=== PATIENT | female | born 1980 | race Caucasian/White ===

== ENCOUNTER 2023-06-08 04:36 | Emergency (ER) | payer MEDICAID, SELFPAY ==
[2023-06-08 04:41] VITALS: BP 143/96; PULSE 86; TEMP 36.6; O2SAT 98; BMI 25.8
--- NOTE | 2023-06-08 04:50 | ED_ITS ---
HPI HPI - Extremity Injury (Upper) General Chief Complaint: Extremity Injury, Upper Stated Complaint: R ARM PAIN Time Seen by Provider: 06/08/23 04:49 Source: patient Mode of arrival: walk-in Limitations: no limitations History of Present Illness HPI narrative: 42-year-old female who is right-hand dominant presents for evaluation of right forearm pain. The patient works at [employer] and states that approximately one month ago she was in the cooler and some pallets of pop started to fall. She put her right arm up to brace the pallets from falling and thinks that she sustained a contusion to the right forearm. She has been working despite being injured and has been using her right arm a lot. When she does certain things with her right arm she has increasing pain. Specifically she has increasing pain with supination of the extremity or repetitive movement such as placing pop bottles in the sliders in the cooler. She has no numbness or tingling. She has been using ibuprofen without significant improvement.No additional injuries or complaints. Related Data Home Medications ?Medication ?Instructions ?Recorded ?Confirmed No Known Home Medications 06/08/23 06/08/23 Allergies Allergy/AdvReac Type Severity Reaction Status Date / Time Penicillins Allergy Intermediate Hives Verified 06/08/23 04:44 Opioid HPI Opioid Management Most Recent Pain and Opioid Data: No Data to Display Review of Systems ROS Status of ROS 10 or more systems reviewed and unremark able except as noted in history and below Exam Narrative Exam Narrative: Nurses note and vital signs reviewed and patient is not hypoxic.Blood pressure is mildly elevated at 143/96 General: The patient appears well and in no apparent distress. Patient is resting comfortably on cart. Skin: Warm, dry, no pallor noted. There is no rash noted. Head: Normocephalic, atraumatic Eye: Normal conjunctiva, no drainage, EOMI. PERRL Ears, Nose, Mouth, and Throat: oral mucosa is moist. partially edentulous Cardiovascular: Regular Rate and Rhythm S1S2, pulses are brisk and equal bilaterally Respiratory: Patient is in no distress, no accessory muscle use, lungs are clear to auscultation, no wheezing, rales or rhonchi Back: non-tender, no CVA tenderness bilaterally to percussion.d. Musculoskeletal: Mild tenderness to the right anterior forearm. Tenderness is increased with supination of the forearm. There is no bony elbow tenderness. There is no swelling, bruising or other notable abnormality. Patient is able to approximate thumb and all fingers. Radial and brachial pulses are brisk and equal bilaterally. Capillary refill in the extremity is less than 2 seconds. There is no tenderness or swelling in the upper arm. There is no shoulder or wrist tenderness. Neurological: A&O x4, normal speech Psychiatric: Cooperative Constitutional Vital Signs, click to edit/add: Last Vital Signs Temp 97.8 F 06/08/23 04:41 Pulse 86 06/08/23 04:41 Resp 18 06/08/23 04:41 BP 143/96 H 06/08/23 04:41 Pulse Ox 98 06/08/23 04:41 O2 Del Method Room Air 06/08/23 04:41 Course Vital Signs Vital signs: Vital Signs Temperature 97.8 F 06/08/23 04:41 Pulse Rate 86 06/08/23 04:41 Respiratory Rate 18 06/08/23 04:41 Blood Pressure 143/96 H 06/08/23 04:41 Pulse Oximetry 98 06/08/23 04:41 Oxygen Delivery Method Room Air 06/08/23 04:41 Temperature 97.8 F 06/08/23 04:41 Pulse Rate 86 06/08/23 04:41 Respiratory Rate 18 06/08/23 04:41 Blood Pressure 143/96 H 06/08/23 04:41 Pulse Oximetry 98 06/08/23 04:41 Oxygen Delivery Method Room Air 06/08/23 04:41 MDM - Extremity Injury (Upper) MDM Narrative Medical decision making narrative: This 42-year-old female who is right-hand dominant presents for evaluation of right forearm pain. She had a minor injury proximal he one month ago at work. She was not seen at that time. Since then she has had intermittent and ongoing right forearm pain which is worse with repetitive movement and supination. She is tender over the mid forearm. Medical Intern strength is intact, there is no numbness or tingling. Pulses and capillary refill are normal. She has been using ibuprofen without significant improvement. X-ray of the forearm was reviewed by myself and is normal. She was given 2 norco to take home to help her rest and will be given a medrol dose pack and a short course of norco to use as needed for ongoing pain. She will be referred to outpatient orthopedics for further evaluation and treatment OARRS was reviewed and there is no activity reported Discharge Plan Discharge Stand Alone Forms: Portal Instructions Chief Complaint: Extremity Injury, Upper Clinical Impression: Forearm strain Patient Disposition: Home, Self-Care Time of Disposition Decision: 05:39 Condition: Good Prescriptions / Home Meds: No Action No Known Home Medications Print Language: Barbadian Instructions: Musculoskeletal Pain (ED) Referrals: Physician,Non-Staff, MD [Primary Care Provider] - 1 week Carlos Fofana MD [Physician] - 1 week
--- NOTE | 2023-06-08 04:52 | PC.NURSE ---
Pt reports pain with movement of right elbow and forearm, denies numbness or tingling in upper extremity.
--- NOTE | 2023-06-08 04:56 | XR_ITS ---
The [address] [address] Patient Name: QUINN AYALA MRN: [id number] date: 1980 Sex: F Assigned Patient Location: ED.MAIN Current Patient Location: ED.MAIN Accession/Order Number: [id number] Exam Date: 06/08/2023 05:18 Report Date: 06/08/2023 05:39 At the request of: CRISTINA DAWN Procedure: XR forearm RT 2V EXAM: XR forearm RT 2V HISTORY: Right forearm pain. forearm injury COMPARISON: None available TECHNIQUE: 2 views right forearm x-rays FINDINGS: No acute fracture line, dislocation, or focal osseous erosion. No radiopaque foreign body. XR/XR forearm RT 2V IMPRESSION: No radiographic evidence for acute bony injury. Electronically authenticated by: KAREN RAY Date: 06/08/2023 05:39
[2023-06-08] MEDS: ONDANSETRON 4 MG RAPDIS TABLET SL (06:03)
[2023-06-08] MEDS: HYDROCODONE/ACET 5-325 MG TABLET 2 TAB PO (06:04)
[2023-06-08 06:06] VITALS: PULSE 76; O2SAT 99
== END 2023-06-08 06:06 | disposition home or self-care (01) ==
PROVIDERS: Emergency Provider Emergency Medicine
DX: S56.911A Strain of unspecified muscles, fascia and tendons at forearm level, right arm, initial encounter (principal); X50.9XXA Other and unspecified overexertion or strenuous movements or postures, initial encounter
CPT/HCPCS: 73090; 99283

== ENCOUNTER 2024-02-04 18:38 | Emergency (ER) | payer MEDICAID, SELFPAY ==
[2024-02-04 18:47] VITALS: BP 120/78; PULSE 81; TEMP 36.5; O2SAT 99; BMI 26.6
--- OUTSIDE RECORDS SUMMARY | 2024-02-04 18:50 | XMS_ITS | CCD ---
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 Name Role Phone John Arce Unavailable SAMY SAPP Attending Unavailable Unavailable Primary Care Provider Unavailabl e Allergies Allergy Classification Reported Allergen(s) Allergy Type Date of Onset Reaction(s) Facility (1 source) Penicillin Drug Allergy Unknown [facility] Other (2 sources) Penicillins Propensity to adverse reactions Hives [facility] Medications Current Medications Medication Drug Class(es) Dates Sig (Normalized) Sig (Original) azithromycin 500 mg oral tablet (1 source) Macrolide Antimicrobial Start: 04-27-2023 take 500 mg by mouth once daily Azithromycin Active 500 MG PO daily 5 April 27, 2023 12:00am cefdinir 300 mg oral capsule (1 source) Cephalosporin Antibacterial Start: 01-18-2023 take 1 capsule by mouth every twelve hours Cefdinir 300 MG 1 capsule Orally every 12 hrs for 10 days Jan, Active predniSONE 20 mg oral tablet (1 source) Start: 01-18-2023 take 1 tablet by mouth every twelve hours predniSONE 20 MG 1 tablet Orally twice a day for 7 Jan, Active Problems Problem Classification Problem Date Documented Da te Episodic/Chronic Noninfectious gastroenteritis (2 sources) Gastroenteritis; Translations: [Noninfective gastroenteritis and colitis, unspecified] 11-22-2023 Episodic Other lower respiratory disease (1 source) Wheezing Episodic Other upper respiratory infections (2 sources) Acute pharyngitis, unspecified; Translations: [Acute pansinusitis, unspecified] Episodic Results Test Name Value Interpretation Reference Range Facil ity No Panel InformationOrdered By: Christian Alanis on 04-27-2023 Quick Strep (POC) [facility] Quick Strepon 01-18-2023 S. pyogenes Org specific cx Ql (Throat) Negative [facility] Other Quick Strep [facility] Other Vital Signs Date Time Vital Sign Value Performing Clinician Facility 11-22-2023 16:04-0400 Body temperature 97.81 [degF] Summer Workman PA Work Phone: [facility] 11-22-2023 16:04-0400 Body weight 70.76 kg Summer Workman PA Work Phone: [facility] 11-22-2023 16:04-0400 Diastolic blood pressure 60 mm[Hg] Summer Workman PA Work Phone: [facility] 11-22-2023 16:04-0400 Heart rate 88 /min Summer AtlanteTrekman PA Work Phone: [facility] 11-22-2023 16:04-0400 SaO2% (BldA) [Mass fraction] 98 % Summer Workman PA Work Phone: [facility] 11-22-2023 16:04-0400 Systolic blood pressure 120 mm[Hg] Summer AtlanteTrekman PA Work Phone: [facility] 04-27-2023 18:45-0400 Body temperature 98.2 [degF] [facility] 04-27-2023 18:45-0400 Body weight 70.[address] [facility] 04-27-2023 18:45-0400 Diastolic blood pressure 84 mm[Hg] [facility] 04-27-2023 18:45-0400 Heart rate 66 /min [facility] 04-27-2023 18:45-0400 Respiratory rate 20 /min [facility] 04-27-2023 18:45-0400 Systolic blood pressure 117 mm[Hg] [facility] 01-18-2023 16:45-0500 Body height John Arce Other [facility] Other 01-18-2023 16:45-0500 Body mass index (BMI) [Ratio] 26.6 kg/m2 John Arce Other [facility] Other 01-18-2023 16:45-0500 Body temperature 98.1 [degF] John Arce Other [facility] Other 01-18-2023 16:45-0500 Body weight 70.31 kg John Arce Other [facility] Other 01-18-2023 16:45-0500 Diastolic blood pressure 74 mm[Hg] John Arce Other [facility] Other 01-18-2023 16:45-0500 Respiratory rate 18 /min John Arce Other [facility] Other 01-18-2023 16:45-0500 SaO2% (BldA) [Mass fraction] 98 % John Arce Other [facility] Other 01-18-2023 16:45-0500 Systolic blood pressure 109 mm[Hg] John Arce Other [facility] Other Encounters Encounter Date Encounter Type Care Provider Facility Start: 11-22-2023 End: 11-22-2023 ambulatory SUMMER M WORKMAN Not Available Start: 11-22-2023 End: 11-22-2023 Office outpatient new 30 minutes Summer M Workman PA Work Phone: [facility] Comment on above: Gastroenteritis (Josselin kailey Dx) Start: 04-27-2023 End: 04-27-2023 ambulatory [facility] Work Phone: Start: 04-27-2023 End: 04-27-2023 Patient encounter procedure [facility] Work Phone: Start: 01-18-2023 End: 01-18-2023 ambulatory John Arce Other [facility] Other Start: 01-18-2023 Office outpatient ne w [address] [facility] [address] Procedures Date Procedure Procedure Detail Performing Clinician Start: 04-27-2023 Quick Strep (POC) Payers Date Payer Category Payer Medicaid [employer] [place] [employer] [place] [id number] 2022-Present [address] [address] [place] [address] [id number] 2022 Medicaid [id number] 1980 Unknown [id number] Social History Date Type Detail Facility Sex Assigned At [facility] Other Start: 1980 Sex Assigned At Female F [facility] Start: 11-22-2023 [facility] History of tobacco use Cigarette Smoker [facility] Start: 11-22-2023 Tobacco use and exposure Smokeless tobacco non-user [facility] Start: 11-22-2023 Alcoholic beverage intake Ex-drinker (finding) [facility] Start: 1980 Sex assigned at Not on file [facility] History of Present illness Narrative 11-22-2023 RACHEL Sims - 11/22/2023 3:50 PM EDT Note Date & Type Note Facility 11-22-2023 History of Presen t illness Narrative HPI: Historian of HPI: patient April Franco is a 43 y.o. female who presents today to the Urgent Care with the following complaints and denials which have been present for 4 day(s) pt admits to diarrhea and nausea but reports she is starting to feel better. Pt denies abd pain, blood in stool, nausea, vomiting, sob, wheezing, cough, recent fever. Pt states she has not been eating much but has still been eating, but has been drinking fluids. Keeping food and liquids down. Pt daughter with similar symptoms. Unknown if ate something bad. Her daughters friends all have food poisoning . C/O Denies Symptom Comments [x] [] Runny Nose [] [x] Difficulty Swallowing [] [x] Sore Throat [] [x] Cough [] [x] Ear Pain [] [x] Fever Had a fever yesterday finally broke yesterday [x] [] Chills [] [x] Nasal Congestion [] [x] Myalgia [] [x] Sinus Pain [] [x] Sinus Pressure Additional Comments: pt has taken ibuprofen OTC medication without relief Allergies Allergen Reactions Penicillins Hives No current outpatient medications Visit Vitals BP 120/60 (BP Location: Left arm, Patient Position: Sitting, BP Cuff Size: Large adult) Pulse 88 Temp 97.8 F Wt 156 lb SpO2 98% Smoking Status Every Day ROS: A complete system ROS was performed and negative aside from the pertinent positives noted in the HPI and PE. IH Testing: Physical Exam Physical Exam General Examination: alert, oriented, normal affect, well-appearing, in no acute distress, well developed, well nourished. Head: normocephalic, atraumatic Oral Cavity: no lesions, mucosa moist Throat: clear, symmetrical rise of soft palate and uvula, no erythema or exudate Lymph Nodes: no cervical adenopathy Heart: regular rate and rhythm, S1, S2 normal Lungs: clear to auscultation bilaterally. No wheezes, rales, rhonchi. Abd: normoactive bowel sounds, soft, non-tender, no HSM, no palpable masses, no guarding or rigidity Extremities: no edema, no cyanosis Psych: alert, oriented, cognitive function intact, cooperative with exam. Assessment/Plan 1. Gastroenteritis Discussed diagnosis and treatment. Increase clear liquids, pedialyte, eat small meals as tolerated, BRAT diet, OTC Tylenol as needed. Patient advised to return to for immediate re-evaluation if symptoms worsen, change, or do not improve. Patient advised to follow-up with PCP in 3-5 days. All questions/concerns addressed. Patient voiced understanding and agreement with the plan. note off school Monday thru mon provided per front desk auxiliary. documented in this encounter [facility] Evaluation note 01-18-2023 Note Date & Type Note Facility 01-18-2023 Evaluation note Encounter Date Diagnosis Assessment Notes Jan, Sore throat (ICD-10 - J02.9) Jan, Acute non-recurrent pansinusitis (ICD-10 - J01.40) Sinus infections can be triggeredby a secondary infection; usually a viral URI or even seasonal allergies. Will prescribe cefdinir and prednisone given discomfort. Take medications as directed. Use saline nasal spray prior to presciption nasal spray. Complete all doses of medication even if you start to feel better. Symptoms should improve during treatment period. Follow up with primary care provider if no improvement of symptoms occur by end of treatment. Jan, Wheezing (ICD-10 - R06.2) [facility] Other Evaluation note Note Date & Type Note Facility Evaluation note No assessment information [facility] Work Phone: Evaluation note Note Date & Type Note Facility Evaluation note Diagnosis Gastroenteritis- Primary Other and unspecified noninfectious gastroenteritis and colitis documented in this encounter [facility] History general Narrative - Reported Note Date & Type Note Facility History general Narrative - Reported Type Surgical History 2020 [facility] Other Chief Complaint and Reason for Visit Chief Complaint sore throat, cough Advance Directives Advance Directive Response Recorded Date/ Time Advance Directives No April 26 6:32pm Summary Purpose Family History No Family History Records Found Additional Source Comments REASON FOR VISIT (unrecogniz ed section and content) COUGH, SORE THROAT, SINUS TN ESSURE Care Teams (unrecognized sec tion and content) Team Status: Active Member Role Status Dates PHYSICIAN NO FAMILY Primary Care Provider Active Team Status: Inactive Member Role Status Dates Christian Alanis PA-C Attending Provider Active St art: April 27, 2023 End: April 27, 2023 PHYSICIAN NO FAMILY Primary Care Provider Active Start: April 27, 2023 End: April 27, 2023 Goals (unrecognized section and content) Goals may be documented in a n alternate section INFORMATION SOURCE (unrecogn ized section and content) DATE CREATED AUTHOR 11/24/[address] [facility] EPIC FOR RECORDS PERTAINING TO PATIENTS WHO ARE OR HAVE BEEN ENROLLED IN A CHEMICAL DEPENDENCY/SUBSTANCEABUSE PROGRAM, SOME INFORMATION MAY BE OMITTED. This clinical summary was aggregated from multiple sources. Caution should be exercised in using it in the provision of clinical care. This summary normalizes information from multiple sources, and as a consequence, information in this document may materially change the coding, format and clinical context of patient data. In addition, data may be omitted in some cases. CLINICAL DECISIONS SHOULD BE BASED ON THE PRIMARY CLINICAL RECORDS. [facility] provides no warranty or guarantee of the accuracy or completeness of information in this document.
--- NOTE | 2024-02-04 18:53 | XR_ITS ---
[address] [address] Patient Name: QUINN AYALA MRN: [id number] date: 1980 Sex: F Assigned Patient Location: ED.MAIN Current Patient Location: Accession/Order Number: [id number] Exam Date: 02/04/2024 19:10 Report Date: 02/04/2024 21:15 At the request of: MARISSA REYES Procedure: XR chest 1V EXAM: XR chest 1V HISTORY: Shortness of breath COMPARISON: None. TECHNIQUE: AP upright chest x-ray FINDINGS: Clear lungs, no infiltrate or edema. Normal heart size and mediastinal contour. No pleural effusion or pneumothorax XR/XR chest 1V IMPRESSION: Negative chest x-ray, no acute findings. Clear lungs. Electronically authenticated by: FALGUNI SANCHEZ Date: 02/04/2024 21:15
--- NOTE | 2024-02-04 19:13 | PC.NURSE ---
this patient voices My daughter has COVID and I think have COVID patient complains of sore throat, body aches and sinus drainage, onset 3 days ago
[2024-02-04] MEDS: DEXAMETHASONE SOD PHOS 10 MG/ML VIAL PO (19:30)
[2024-02-04] MEDS: ONDANSETRON 4 MG RAPDIS TABLET SL (19:30)
[2024-02-04 19:32] LABS: Internal Control Within Normal Limits; SARS-CoV-2 Ag NEGATIVE (NEGATIVE)
--- NOTE | 2024-02-04 19:32 | PC.NURSE ---
patient received medication and is aware waiting on test results, this patient voices no concerns and shows no signs of distress
--- NOTE | 2024-02-04 19:49 | ED.GENADUL1 ---
HPI HPI - General Adult General Chief complaint: Shortness of Breath/Dyspnea Stated complaint: SHORTNESS OF BREATH/ GENERAL WEAKNESS Time Seen by Provider: 02/04/24 18:52 Source: patient Mode of arrival: walk-in Limitations: no limitations History of Present Illness HPI narrative: Patient is a 43-year-old female who presents to the emergency department for flulike illness for the last 3 days. She states her daughter tested positive for COVID 4 days ago and she believes she may have COVID. She reports fevers, cough without sputum production, headache, nausea and bodyaches. She states she feels winded when she is up and moving. No concern for , no medications taken prior to arrival although she has been using Motrin today for fever control. Related Data Home Medications ?Medication ?Instructions ?Recorded ?Confirmed No Known Home Medications 06/08/23 06/08/23 Previous Rx's ?Medication ?Instructions ?Recorded hoenihmfeymudww-lcydvooyajynckz-WE 10 ml PO Q6H PRN cold symptoms 02/04/24 2 mg-30 mg-10 mg/5 mL oral syrup #200 mL (Bromfed DM) dexamethasone 4 mg tablet 4 mg PO BID 5 days #10 tabs 02/04/24 ondansetron 4 mg disintegrating 4 mg PO Q6H PRN nausea and 02/04/24 tablet vomiting #12 tabs Allergies Allergy/AdvReac Type Severity Reaction Status Date / Time Penicillins Allergy Intermediate Hives Verified 06/08/23 04:44 Opioid HPI Opioid Management Most Recent Opioid Data: No Data to Display Review of Systems ROS Constitutional Reports: fever and chills Ears, nose, mouth, and throat Reports: nasal congestion; Denies: throat pain Cardiovascular Denies: chest pain Respiratory Reports: shortness of breath and cough; Denies: wheezing Gastrointestinal Reports: nausea; Denies: vomiting or diarrhea Integumentary/Breast Denies: rash Neurological Reports: headache; Denies: numbness in extremities or weakness in extremities Hematologic/Lymphatic Denies: easy bruising or easy bleeding PFSH PFSH Social History Little interest or pleasure in doing things: not at all Feeling down, depressed, or hopeless: not at all Exam Narrative Exam Narrative: Gen.: Awake, alert, in no distress Head: Normocephalic, atraumatic ENT: Moist mucous membranes Respiratory: No respiratory distress, lungs clear bilaterally; speaks in full sentences, no wheezing or rhonchi Cardio: Regular rate and rhythm Extremities: Moves extremities equally Psych: Normal mood and affect Neuro: No focal neuro deficit Skin: Warm, dry, intact Constitutional Vital Signs, click to edit/add: Last Vital Signs Temp 97.7 F 02/04/24 18:47 Pulse 81 02/04/24 18:47 Resp 18 02/04/24 19:12 BP 120/78 02/04/24 18:47 Pulse Ox 99 02/04/24 18:47 O2 Del Method Room Air 02/04/24 18:47 Course Vital Signs Vital signs: Vital Signs Temperature 97.7 F 02/04/24 18:47 Pulse Rate 81 02/04/24 18:47 Respiratory Rate 20 02/04/24 18:47 Blood Pressure 120/78 02/04/24 18:47 Pulse Oximetry 99 02/04/24 18:47 Oxygen Delivery Method Room Air 02/04/24 18:47 Temperature 97.7 F 02/04/24 18:47 Pulse Rate 81 02/04/24 18:47 Respiratory Rate 18 02/04/24 19:12 Blood Pressure 120/78 02/04/24 18:47 Pulse Oximetry 99 02/04/24 18:47 Oxygen Delivery Method Room Air 02/04/24 18:47 Medical Decision Making MDM Narrative Medical decision making narrative: COVID test is negative, chest x-ray is unremarkable and patient was reevaluated by attending physician. She has stable vital signs with no tachycardia, hypoxia. She was instructed to retest for COVID if she continues to have symptoms for several more days. She is started on Decadron, Zofran, Bromfed-DM. Work note provided. Follow-up PCP and return to the ER if symptoms change or worsen SHARED APC VISIT, PHYSICIAN ATTESTATION: [id number] I performed a substantive part of the MDM during the patient?s E/M visit. I personally evaluated and examined the patient. I personally made or approved the documented management plan and acknowledge its risk of complications. ? Medical Records Medical records reviewed: Yes I reviewed the patient's medical records Lab Data Lab results reviewed: Yes I reviewed the patient's lab results Labs: Lab Results 02/04/24 Range/Units 18:53 SARS-CoV-2 Ag (CV2AG) Negative (NEGATIVE) Imaging Data Chest x-ray: Attestation: I have reviewed the pertinent imaging results. Discharge Plan Discharge Chief Complaint: Shortness of Breath/Dyspnea Clinical Impression: Acute upper respiratory infection Patient Disposition: Home, Self-Care Time of Disposition Decision: 19:52 Condition: Good Prescriptions / Home Meds: New dexamethasone 4 mg tablet 4 mg PO BID 5 Days Qty: 10 0RF tkbktzyyzirbbmi-fnndwnmkk-UJ [Bromfed DM] 2-30-10 mg/5 mL syrup 10 ml PO Q6H PRN (Reason: cold symptoms) Qty: 200 0RF ondansetron 4 mg tablet,disintegrating 4 mg PO Q6H PRN (Reason: nausea and vomiting) Qty: 12 0RF No Action No Known Home Medications Print Language: Australian Instructions: Upper Respiratory Infection (ED) Referrals: Physician,Non-Staff, MD [Primary Care Provider] - 1 week
--- NOTE | 2024-02-04 20:00 | PC.NURSE ---
i gave this patient verbal and paper discharge orders along with 3 e-scripts and 1 work note, this patient voices yes to understanding these. at time of discharge this patient voices no concerns and shows no signs of distress
== END 2024-02-04 20:01 | disposition home or self-care (01) ==
PROVIDERS: Physician Assistant; Emergency Provider Emergency Medicine
DX: J06.9 Acute upper respiratory infection, unspecified (principal); Z20.822 Contact with and (suspected) exposure to COVID-19
CPT/HCPCS: 71045; 87811; 99284; J1100; Q0162

== ENCOUNTER 2024-04-01 10:33 | Emergency (ER) | payer MEDICAID, SELFPAY ==
[2024-04-01 10:41] VITALS: BP 111/83; PULSE 72; TEMP 36.7; O2SAT 99; BMI 26.6
[2024-04-01 11:13] LABS: Bilirubin Urine NEGATIVE (NEGATIVE); Blood Urine MODERATE (NEGATIVE); Clarity Urine CLEAR (CLEAR); Color Urine LT. YELLOW (YELLOW); Glucose Urine UA NEGATIVE (NEGATIVE); Ketones Urine NEGATIVE (NEGATIVE); Leukocyte Esterase Urine MODERATE (NEGATIVE); Nitrite Urine NEGATIVE (NEGATIVE); Protein Urine NEGATIVE (NEG/TRACE); Specific Gravity Urine 1.025 (1.005-1.025); Urobilinogen Urine 0.2 EU/dL (0.2-1.0); pH Urine 5.5 (5.0-9.0)
--- OUTSIDE RECORDS SUMMARY | 2024-04-01 11:14 | XMS_ITS | CCD ---
Author Organization [facility] Inform ion Partnership [facility] Care Team Providers Care Shuttleless Loom Weaver Name Role Phone John Arce Unavailable SAMY SAPP Attending Unavailable Unavailable Primary Care Provider Unavailabl e Allergies Allergy Classification Reported Allergen(s) Allergy Type Date of Onset Reaction(s) Facility (1 source) Penicillin Drug Allergy Unknown [facility] Other (2 sources) Penicillins Propensity to adverse [...] Christian Alanis on 04-27-2023 Quick Strep (POC) [facility] Quick Strepon 01-18-2023 S. pyogenes Org specific cx Ql (Throat) Negative [facility] Other Quick Strep [facility] Other Vital Signs Date Time Vital Sign Value Performing Clinician Facility 11-22-2023 16:04-0400 Body temperature 97.81 [degF] Summer Workman PA Work Phone: [facility] 11-22-2023 16:04-0400 Body weight 70.76 kg Summer Workman PA Work Phone: [facility] 11-22-2023 16:04-0400 Diastolic blood pressure 60 mm[Hg] Summer Workman PA Work Phone: [facility] 11-22-2023 16:04-0400 Heart rate 88 /min Summer Misocaman PA Work Phone: [facility] 11-22-2023 16:04-0400 SaO2% (BldA) [Mass fraction] 98 % Summer Workman PA Work Phone: [facility] 11-22-2023 16:04-0400 Systolic blood pressure 120 mm[Hg] Summer Misocaman PA Work Phone: [facility] 04-27-2023 18:45-0400 Body temperature 98.2 [degF] [facility] 04-27-2023 18:45-0400 Body weight 70.3 kg [facility] 04-27-2023 18:45-0400 Diastolic blood pressure 84 mm[Hg] [facility] 04-27-2023 18:45-0400 Heart rate 66 /min [facility] 04-27-2023 18:45-0400 Respiratory rate 20 /min [facility] 04-27-2023 18:45-0400 Systolic blood pressure 117 mm[Hg] [facility] 01-18-2023 16:45-0500 Body height John Arce Other [facility] Other 01-18-2023 16:45-0500 Body mass index (BMI) [Ratio] 26.6 kg/m2 John Arce Other [facility] Other 01-18-2023 16:45-0500 Body temperature 98.1 [degF] John Arce Other [facility] Other 01-18-2023 16:45-0500 Body weight 70.31 kg John Arce Other [facility] Other 01-18-2023 16:45-0500 Diastolic blood pressure 74 mm[Hg] John Arce Other [facility] Other 01-18-2023 16:45-0500 Respiratory rate 18 /min John Arce Other [facility] Other 01-18-2023 16:45-0500 SaO2% (BldA) [Mass fraction] 98 % John Arce Other [facility] Other 01-18-2023 16:45-0500 Systolic blood pressure 109 mm[Hg] John Arce Other [facility] Other Encounters Encounter Date Encounter Type Care Provider Facility Start: 11-22-2023 End: 11-22-2023 ambulatory SUMMER M WORKMAN Not Available Start: 11-22-2023 End: 11-22-2023 Office outpatient new 30 minutes Summer M Workman PA Work Phone: [facility] Comment on above: Gastroenteritis (Josselin kailey Dx) Start: 04-27-2023 End: 04-27-2023 ambulatory [facility] Work Phone: Start: 04-27-2023 End: 04-27-2023 Patient encounter procedure [facility] [place] Work Phone: Start: 01-18-2023 End: 01-18-2023 ambulatory John Arce Other [facility] Other Start: 01-18-2023 Office outpatient ne w 20 minutes John [facility] [address] Procedures Date Procedure Procedure Detail Performing Clinician Start: 04-27-2023 Quick Strep (POC) Payers Date Payer Category Payer Medicaid [employer] [place] [employer] [place] [id number] 2022-Present [address] [address] [place] [address] [id number] 2022 Medicaid [id number] 1980 Unknown [id number] Social History Date Type Detail Facility Sex Assigned At [facility] Other Start: 1980 Sex Assigned At Female F [facility] Start: 11-22-2023 [facility] History of [...] off 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 documented in this encounter [facility] Evaluation [...] of treatment. Jan, Wheezing (ICD-10 - R06.2) [facility] Other Evaluation note Note Date & Type Note Facility Evaluation note No assessment information [facility] Work Phone: Evaluation note Note Date & Type Note Facility Evaluation note Diagnosis Gastroenteritis- Primary Other and unspecified noninfectious gastroenteritis and colitis documented in this encounter [facility] History general Narrative - Reported Note Date & Type Note Facility History general Narrative - Reported Type Surgical History 2020 [facility] Other Chief Complaint and Reason for Visit Chief Complaint sore throat, cough Advance Directives Advance Directive Response Recorded Date/ Time Advance Directives No April 26 6:32pm Summary Purpose Family History No Family History Records Found Additional Source Comments REASON FOR VISIT (unrecogniz ed section and content) COUGH, SORE THROAT, SINUS UT ESSURE Care Teams (unrecognized sec tion and [...] section and content) DATE CREATED AUTHOR 11/24/2023 [facility] EPIC FOR RECORDS PERTAINING TO [...] BE BASED ON THE PRIMARY CLINICAL RECORDS. [facility]. provides no warranty or guarantee of the accuracy or completeness of information in this document.
[2024-04-01 11:15] LABS: Basophils Percent Auto 0.5 % (0.2-2.0); Eosinophils Percent Auto 0.2 % (0.9-7.0); Hematocrit 42.7 % (36.0-48.0); Hemoglobin 13.9 g/dL (12.0-16.0); Immature Granulocytes Abs Auto 0.01 10^3/uL (0.00-0.03); Immature Granulocytes Pct Auto 0.2 % (0.0-0.5); Lymphocytes Absolute Auto 1.6 10^3/uL (1.2-3.8); Lymphocytes Percent Auto 28.5 % (20.5-60.0); Mean Corpuscular HGB Conc 32.6 g/dL (29.9-35.2); Mean Corpuscular Hemoglobin 29.3 pg (26.7-34.0); Mean Corpuscular Volume 90.1 fL (81.0-99.0); Mean Platelet Volume 8.5 fL (9.5-13.5); Monocytes Absolute Auto 0.9 10^3/uL (0.3-0.8); Monocytes Percent Auto 15.1 % (1.7-12.0); Neutrophils Absolute Auto 3.2 10^3/uL (1.4-6.5); Neutrophils Percent Auto 55.5 % (43.0-75.0); Platelet Count 374 10^3/uL (150-450); Red Blood Count 4.74 10^6/uL (4.20-5.40); Red Cell Distribution Width 14.8 % (11.0-15.0); White Blood Count 5.7 10^3/uL (4.0-11.0)
[2024-04-01 11:23] LABS: Trichomonas Urine SEEN (NONE SEEN)
[2024-04-01 11:32] LABS: Bacteria Urine LARGE #/HPF (NONE SEEN)
[2024-04-01 11:33] LABS: Cast Seen? NONE SEEN #/LPF (NONE SEEN); Crystals Seen? None Seen #/HPF (None Seen); Mucus Urine NONE SEEN (NONE SEEN); Squamous Epithelial Cell Urine MANY #/LPF (NONE/RARE); Urine Culture Indicated YES-FRMC
[2024-04-01 11:35] LABS: Lactate/Lactic Acid 0.8 mmol/L (0.4-2.0)
[2024-04-01 11:41] LABS: Alanine Aminotransferase 29 U/L (14-59); Albumin Globulin Ratio 1.1; Albumin Level 3.9 g/dL (3.4-5.0); Alkaline Phosphatase 73 U/L (46-116); Anion Gap 8.6; Aspartate Amino Transferase 21 U/L (15-37); BUN Creatinine Ratio 5.5; Bilirubin Direct <0.1 mg/dL (0.0-0.2); Bilirubin Total 0.4 mg/dL (0.2-1.0); Calcium 8.7 mg/dL (8.5-10.1); Chloride 103 mmol/L (98-107); Estimated GFR (African America >60 (>=60 mL/min/1.73m^2); Estimated GFR (Non-African Ame >60 (>=60 mL/min/1.73m^2); Globulin 3.4 g/dL; Glucose 125 mg/dL (74-106); Potassium 3.6 mmol/L (3.5-5.1); Sodium 137 mmol/L (136-145); Total Protein 7.3 g/dL (6.4-8.2); Troponin I High Sensitivity <4.0 pg/mL (4.0-51.3)
--- NOTE | 2024-04-01 13:31 | ED_ITS ---
HPI HPI - General Adult General Chief complaint: Abdominal Pain Stated complaint: BACK PAIN VOMITTING Time Seen by Provider: 04/01/24 12:31 Source: patient Mode of arrival: walk-in Limitations: no limitations History of Present Illness HPI narrative: Patient is a 43-year-old female who is presenting to the ER today with chief complaint of bilateral upper thoracic pain along with nausea and vomiting. Patient started having symptoms yesterday of nausea and vomiting. Patient has no history of kidney stones. Patient is having upper bilateral thoracic pain, right greater than left. Patient has no urinary frequency urgency or burning. No diarrhea or constipation. No other acute complaints. Patient's nausea vomiting was yesterday, patient believes it was secondary to pain. She has not had any nausea or vomiting today, she is having upper thoracic pain. Patient has no chest pain or tightness. No shortness of breath. Patient has no rash. No recent history of heavy lifting, twisting or turning. 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 No other acute complaints. All systems are negative except as noted/marked. All systems reviewed and othe rwise negative. Nurses note and vital signs reviewed and patient is not hypoxic. General: The patient appears well and in no apparent distress. Patient is resting comfortably on cart. Patient is not toxic, lethargic, or listless Skin: Warm, dry, no pallor noted. There is no rash noted. No petechiae, purpura. Head: Normocephalic, atraumatic Eye: Normal conjunctiva, no drainage, EOMI. PERRL Ears, Nose, Mouth, and Throat: oral mucosa is moist. Nares patent. Mouth without vesicles. Cardiovascular: Regular Rate and Rhythm, no murmur, gallop, rub Respiratory: Patient is in no distress, no accessory muscle use, lungs are clear to auscultation, no wheezing, rales or rhonchi Back: Patient has bilateral mild to moderate tenderness to palpation to the soft tissue bilateral paraspinal thoracic soft tissue, approximately T4-T10. Otherwise non-tender, no CVA tenderness bilaterally to percussion. No CT LS midline pain. GI: Soft, no pulsatile mass, no tenderness to palpation, no masses appreciated. No flank pain bilateral. Mild suprapubic tenderness to palpation. No rebound, guarding, or rigidity noted. No distention Musculoskeletal: Patient has full range of motion of all of the extremities, no motor, sensory, or focal neurological deficits Neurological: A&O x4, normal speech Psychiatric: Cooperative Related Data Previous Rx's ?Medication ?Instructions ?Recorded bprbxkwasnzller-flykmwxkpbwnqpi-BC 10 ml PO Q6H PRN cold symptoms 02/04/24 2 mg-30 mg-10 mg/5 mL oral syrup #200 mL (Bromfed DM) dexamethasone 4 mg tablet 4 mg PO BID 5 days #10 tabs 02/04/24 ondansetron 4 mg disintegrating 4 mg PO Q6H PRN nausea and 02/04/24 tablet vomiting #12 tabs ondansetron 4 mg disintegrating 4 mg PO Q4H PRN nausea and 04/01/24 tablet vomiting 3 days #6 tabs sulfamethoxazole 800 1 tab PO BID 7 days #14 tabs 04/01/24 mg-trimethoprim 160 mg tablet (Bactrim DS) tramadol 50 mg tablet 50 mg PO Q8H PRN pain #10 tabs 04/01/24 Allergies Allergy/AdvReac Type Severity Reaction Status Date / Time Penicillins Allergy Intermediate Hives Verified 04/01/24 10:40 Opioid HPI Opioid Management Most Recent Opioid Data: Last Pain Scale 8 04/01/24 10:47 04/01/24 Last ED Pain Assessment 04/01/24 10:47 PFSH PFSH Social History Little interest or pleasure in doing things: not at all Feeling down, depressed, or hopeless: not at all Exam Constitutional Vital Signs, click to edit/add: Last Vital Signs Temp 98.0 F 04/01/24 10:41 Pulse 72 04/01/24 10:41 Resp 20 04/01/24 10:41 BP 111/83 04/01/24 10:41 Pulse Ox 99 04/01/24 10:41 O2 Del Method Room Air 04/01/24 10:41 Course Vital Signs Vital signs: Vital Signs Temperature 98.0 F 04/01/24 10:41 Pulse Rate 72 04/01/24 10:41 Respiratory Rate 20 04/01/24 10:41 Blood Pressure 111/83 04/01/24 10:41 Pulse Oximetry 99 04/01/24 10:41 Oxygen Delivery Method Room Air 04/01/24 10:41 Temperature 98.0 F 04/01/24 10:41 Pulse Rate 72 04/01/24 10:41 Respiratory Rate 20 04/01/24 10:41 Blood Pressure 111/83 04/01/24 10:41 Pulse Oximetry 99 04/01/24 10:41 Oxygen Delivery Method Room Air 04/01/24 10:41 Medical Decision Making MDM Narrative Medical decision making narrative: Patient had IV established, patient was given Toradol and Zofran prior to discharge. Patient has evidence of urinary tract infection, patient urine is also contaminated. Urine culture will be done. Patient will be sent home with Bactrim, Ultram, Zofran. Patient had blame less apologies given for length of stay secondary to ER volume. Patient was understanding. Patient given a work note. Patient understands the importance of increasing Gatorade, Powerade, water. Patient will follow-up with PCP as needed as well. Patient having intractable nausea vomiting pain or any other acute concerns and x-ray 4 hours patient returned back to the ER for further evaluation. Patient has no history of kidney stone. Patient is in bilateral upper thoracic pain, patient has no lower lumbar pain or CVA tenderness palpation Lab Data Lab results reviewed: Yes I reviewed the patient's lab results Labs: Lab Results 04/01/24 04/01/24 Range/Units 10:50 10:55 WBC 5.7 (4.0-11.0) 10^3/uL RBC 4.74 (4.20-5.40) 10^6/uL Hgb 13.9 (12.0-16.0) g/dL Hct 42.7 (36.0-48.0) % MCV 90.1 (81.0-99.0) fL MCH 29.3 (26.7-34.0) pg MCHC 32.6 (29.9-35.2) g/dL RDW 14.8 (11.0-15.0) % Plt Count 374 (150-450) 10^3/uL MPV 8.5 L (9.5-13.5) fL Neut % (Auto) 55.5 (43.0-75.0) % Lymph % (Auto) 28.5 (20.5-60.0) % [place] % (Auto) 15.1 H (1.7-12.0) % Eos % (Auto) 0.2 L (0.9-7.0) % Baso % (Auto) 0.5 (0.2-2.0) % Neut # (Auto) 3.2 (1.4-6.5) 10^3/uL Lymph # (Auto) 1.6 (1.2-3.8) 10^3/uL [place] # (Auto) 0.9 H (0.3-0.8) 10^3/uL Eos # (Auto) 0.0 (0.0-0.7) 10^3/uL Baso # (Auto) 0.0 (0.0-0.1) 10^3/uL Abs Immat Gran (auto) 0.01 (0.00-0.03) 10^3/uL Imm/Tot Granulo (auto) 0.2 (0.0-0.5) % Sodium 137 (136-145) mmol/L Potassium 3.6 (3.5-5.1) mmol/L Chloride 103 (98-107) mmol/L Carbon Dioxide 29.0 (21.0-32.0) mmol/L Anion Gap 8.6 BUN 4.0 L (7.0-18.0) mg/dL Creatinine 0.73 (0.55-1.02) mg/dL Est GFR ( Amer) >60 (>=60 mL/min/1.73m^2) Est GFR (Non-Af Amer) >60 (>=60 mL/min/1.73m^2) BUN/Creatinine Ratio 5.5 Glucose 125 H (74-106) mg/dL Lactate 0.8 (0.4-2.0) mmol/L Calcium 8.7 (8.5-10.1) mg/dL Total Bilirubin 0.4 (0.2-1.0) mg/dL Direct Bilirubin <0.1 (0.0-0.2) mg/dL AST 21 (15-37) U/L ALT 29 (14-59) U/L Alkaline Phosphatase 73 (46-116) U/L Troponin I High Sens <4.0 L (4.0-51.3) pg/mL Total Protein 7.3 (6.4-8.2) g/dL Albumin 3.9 (3.4-5.0) g/dL Globulin 3.4 g/dL Albumin/Globulin Ratio 1.1 Lipase 29.0 (16.0-77.0) U/L Urine Color Lt. yellow (YELLOW) Urine Clarity Clear (CLEAR) Urine pH 5.5 (5.0-9.0) Ur Specific [place] 1.025 (1.005-1.025) Urine Protein Negative (NEG/TRACE) mg/dL Urine Glucose (UA) Negative (NEGATIVE) mg/dL Urine Ketones Negative (NEGATIVE) mg/dL Urine Occult Blood Moderate A (NEGATIVE) Urine Nitrite Negative (NEGATIVE) Urine Bilirubin Negative (NEGATIVE) Urine Urobilinogen 0.2 (0.2-1.0) EU/dL Ur Leukocyte Esterase Moderate A (NEGATIVE) Urine RBC 5-10 A (0-2) #/HPF Urine WBC 2-5 A (NONE SEEN) #/HPF Ur Squamous Epith Cells Many A (NONE/RARE) #/LPF Urine Crystals None seen (None Seen) #/HPF Urine Bacteria Large A (NONE SEEN) #/HPF Urine Casts None seen (NONE SEEN) #/LPF Urine Mucus None seen (NONE SEEN) Urine Trichomonas Seen A (NONE SEEN) Ur Culture Indicated[place] [place] Data Attestation: I personally reviewed and interpreted this ECG as follows: (EKG interpretation. Normal sinus rhythm at 67 beats a minute. Normal axis deviation. No acute ST elevation, no acute ectopy. QTc of 393.) Discharge Plan Discharge Stand Alone Forms: Work/School Release Chief Complaint: Abdominal Pain Clinical Impression: Acute thoracic back pain, UTI (urinary tract infection), Vomiting, Flu-like symptoms Patient Disposition: Home, Self-Care Time of Disposition Decision: 13:48 Condition: Fair Prescriptions / Home Meds: New sulfamethoxazole-trimethoprim [Bactrim DS] 800-160 mg tablet 1 tab PO BID 7 Days Qty: 14 0RF ondansetron 4 mg tablet,disintegrating 4 mg PO Q4H PRN (Reason: nausea and vomiting) 3 Days Qty: 6 0RF tramadol 50 mg tablet 50 mg PO Q8H PRN (Reason: pain) Qty: 10 0RF No Action dexamethasone 4 mg tablet 4 mg PO BID 5 Days Qty: 10 0RF tqfaxjlryiwcpqx-pzrdbeslo-YQ [Bromfed DM] 2-30-10 mg/5 mL syrup 10 ml PO Q6H PRN (Reason: cold symptoms) Qty: 200 0RF ondansetron 4 mg tablet,disintegrating 4 mg PO Q6H PRN (Reason: nausea and vomiting) Qty: 12 0RF Print Language: Zimbabwean Instructions: Urinary Tract Infection in Women (ED), Acute Nausea and Vomiting (ED), Thoracic Pain (ED), Back Pain (ED) Additional Instructions: Increase fluids at home, Gatorade, Powerade, water. Increase fluids. Use Zofran if needed. Start using antibiotic as well, urine culture has been sent. Urine culture will return in the next 2 or 3 days. For thoracic spine pain, use ice, stretching. Alternate Tylenol and either Motrin, Advil, or ibuprofen every 4 hours to help with pain. Maximum dose of Tylenol is 3000 mg a day. Maximum dose of either Motrin, Advil, or ibuprofen is 2400 mg a day. Referrals: Jeff Robertson NP [Primary Care Provider] - 1 week
[2024-04-01] MEDS: ONDANSETRON PF 4 MG/2 ML VIAL IV (13:39)
[2024-04-01] MEDS: KETOROLAC TROMETHAMINE 30 MG/ML VIAL 15 MG IVP (13:39)
[2024-04-01 13:59] VITALS: BP 102/64; PULSE 95; O2SAT 98
--- NOTE | 2024-04-01 18:00 | ECG_ITS ---
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
== END 2024-04-01 14:05 | disposition home or self-care (01) ==
PROVIDERS: Emergency Provider Emergency Medicine; PCP Nurse Practitioner Family
DX: N39.0 Urinary tract infection, site not specified (principal); M54.6 Pain in thoracic spine; R11.2 Nausea with vomiting, unspecified
CPT/HCPCS: 36415; 80053; 80076; 81001; 83605; 83690; 84484; 85025; 87086; 93005; 96374; 96375; 99284; J1885; J2405